=== PATIENT | male | born 1975 | race Caucasian/White ===

== ENCOUNTER 2018-09-04 11:55 | Emergency (ER) | payer OTHER ==
[~2018-09-04] VITALS: Ht 180.3 cm; Wt 70.4 kg
[2018-09-04 12:11] VITALS: BP 135/76
--- NOTE | 2018-09-04 12:18 | NUR ---
PT AMBULATED TO LOBBY WITH VSS
--- NOTE | 2018-09-04 12:51 | NUR ---
PATIENT AMBULATED TO BED 6.
--- NOTE | 2018-09-04 12:52 | NUR ---
BIB SIGNIFICANT OTHER. AAO X4 C/O EYE PAIN, RED EYE, AND BLURRY VISION IN RT EYE X 4 DAYS. PT REPORTS PRESSURE PAIN AT 8/10 WHEN HE LOOKS AT THE LIGHT. PER PT GREEN DISCHARGE ON R EYE. PT STATES THAT 3 DAYS AGO A BLACK FOREIGN OBJECT WAS TAKEN OUT OF R EYE. R EYE PUPIL IS SLIGHTLY BIGGER THAN THE L EYE. R EYE BRISK 3MM, L EYE BRISK 2 MM. PT ABLE TO TRACK AND FOLLOW. STEADY GAIT. EQUAL ANSLEY STRENGTH TO UPPER AND LOWER EXTREMITIES. HOB UP. BED SIDE RAILS UP X1. ON LOW BED POSITION, LOCKED. ER MADE AWARE OF PT STATUS.
--- NOTE | 2018-09-04 13:07 | NUR ---
DR LIMA AT BEDSIDE FOR PT EVALUATION.
[2018-09-04] MEDS ORDERED: TETRACAINE HCL/PF 0.5% OPTH 4 ML BTL OP ONE (13:20)
[2018-09-04] MEDS ORDERED: FLUORESCEIN OPTH STRIP 0.6 MG OP ONE (13:20)
[2018-09-04] MEDS ORDERED: ERYTHROMYCIN 0.5% OPTH OINT 1 GM TUBE OP ONE (13:55)
[2018-09-04 14:20] VITALS: BP 130/72
--- NOTE | 2018-09-04 14:20 | NUR ---
Patient discharged with v/s stable. Written and verbal after care instructions given and explained. Patient alert, oriented and verbalized understanding of instructions. Ambulatory with steady gait. All questions addressed prior to discharge. ID band removed. Patient advised to follow up with PMD. Rx of Erythromycin 0.5% Ophthalmic Ointment given. Patient educated on indication of medication including possible reaction and side effects. Opportunity to ask questions provided and answered.
== END 2018-09-04 14:20 | disposition home or self-care (01) ==
LOC: MED 11:55
DX: S05.01XA Injury of conjunctiva and corneal abrasion without foreign body, right eye, initial encounter (principal); H16.001 Unspecified corneal ulcer, right eye; X58.XXXA Exposure to other specified factors, initial encounter; Y93.89 Activity, other specified; Y92.89 Other specified places as the place of occurrence of the external cause; Y99.8 Other external cause status
CPT/HCPCS: 99284

== ENCOUNTER 2022-02-02 01:52 | Emergency (ER) | payer OTHER ==
[~2022-02-02] VITALS: Ht 177.8 cm; Wt 74.8 kg
[2022-02-02 01:59] VITALS: BP 127/76
--- NOTE | 2022-02-02 02:03 | NUR ---
PT TO BED 02.
--- NOTE | 2022-02-02 02:04 | NUR ---
PT TAKEN TO BED 4
--- NOTE | 2022-02-02 02:31 | NUR ---
46/M BIB SELF C/C LEFT EARLOBE INJURY S/P WORKIG ON TRUCK, STATES THE PRYBAR CAME BACK AND HIT HIS EAR. PT IS MISSING PIECES OF EARLOBE. TETANUS SHOT GIVEN 2 YRS AGO. DENIES HX, RX AND ALLERGIES
[2022-02-02] MEDS ORDERED: IBUPROFEN 800 MG TAB PO ONE ×2 (03:05→05:30)
[2022-02-02] MEDS ORDERED: AMOXIL/CLAVULANATE 875/125 MG 1 TAB PO ONE (03:05)
[2022-02-02] MEDS ORDERED: HYDROcodone/APAP 10/325 MG 1 TAB TAB PO ONE ×2 (03:55→05:30)
--- NOTE | 2022-02-02 03:55 | NUR ---
JOSE ALBERTO C/O PAIN WHICH IRRIGATING. VERBAL ORDER NORCO 10/325MG PO. ORDERED AND CARRIED OUT.
--- NOTE | 2022-02-02 04:01 | NUR ---
JOSE ALBERTO TOLERATED MEDICATION WELL. URBANOR
--- NOTE | 2022-02-02 05:29 | NUR ---
VERBAL ORDER FROM MD KEARNS FOR NORCO 10/325MG AND IBUPROFEN 800MG PO. ORDERS CARRIED OUT
--- NOTE | 2022-02-02 05:35 | NUR ---
PATIETN MEDICATED PER ORDERS. TOLERATED WELL.
[2022-02-02] MEDS ORDERED: IBUP-1878 PO (05:36)
[2022-02-02] MEDS ORDERED: AMOX-999 PO (05:36)
[2022-02-02 05:54] VITALS: BP 123/68
--- NOTE | 2022-02-02 05:54 | NUR ---
Patient discharged with v/s stable. Written and verbal after care instructions given and explained. Patient alert, oriented and verbalized understanding of instructions. Ambulatory with steady gait. All questions addressed prior to discharge. ID band removed. Patient advised to follow up with PMD. Rx of AMOXICILLIN/POTAS., IBUPROFEN given.
--- NOTE | 2022-02-02 05:54 | NUR ---
Chart checked and completed.
== END 2022-02-02 05:54 | disposition home or self-care (01) ==
LOC: MED 01:52
DX: S01.312A Laceration without foreign body of left ear, initial encounter (principal); Z79.899 Other long term (current) drug therapy; W20.8XXA Other cause of strike by thrown, projected or falling object, initial encounter; Y93.89 Activity, other specified; Y92.89 Other specified places as the place of occurrence of the external cause; Y99.8 Other external cause status
CPT/HCPCS: 12013; 99285